=== PATIENT | female | born 1975 | race American Indian/Alaskan Native ===

== ENCOUNTER 2017-10-16 10:09 | Outpatient (CLI) | payer MEDICAID ==
--- NOTE | 2017-10-16 11:41 | XRay Report ---
Right wrist: Pain. There is a soft tissue mass anterior and lateral to the distal radius. No calcification. No underlying bone abnormality. The remainder the wrist is unremarkable. Impression: Nonspecific soft tissue mass.
== END 2017-10-16 10:10 | disposition home or self-care (01) ==
LOC: SPVIMAG 10:09
PROVIDERS: ATTEND Orthopaedic Surgery Sports Medicine
DX: M25.531 Pain in right wrist (principal); M79.89 Other specified soft tissue disorders

== ENCOUNTER 2017-11-06 07:46 | Outpatient (CLI) | payer MEDICAID ==
--- NOTE | 2017-11-06 08:05 | XRay Report ---
RIGHT SHOULDER RADIOGRAPHS INDICATION: Right shoulder pain. COMPARISON: None similar. FINDINGS: Frontal and Y views of the right shoulder, 3 projections demonstrate normal humeral head contour, well positioned against the glenoid. Normal acromioclavicular joint. Preserved scapular contour. Normal visualized soft tissues, right ribs and lung. CONCLUSION: No acute right shoulder radiographic abnormality, as described. Thank you for the opportunity to participate in this patient's care.
== END 2017-11-06 07:47 | disposition home or self-care (01) ==
LOC: SPVIMAG 07:46
PROVIDERS: ATTEND Orthopaedic Surgery Sports Medicine
DX: M25.511 Pain in right shoulder (principal)

== ENCOUNTER 2019-09-27 13:15 | Outpatient (CLI) | payer MEDICAID ==
--- NOTE | 2019-09-27 14:18 | Ultrasound Report ---
TRANSABDOMINAL PELVIC AND TRANSVAGINAL ULTRASOUND HISTORY: OVARIAN MASS LEFT,IRREGULAR MEN COMPARISON: None. TECHNIQUE: Routine transabdominal and transvaginal pelvic ultrasound performed. FINDINGS: TRANSABDOMINAL PELVIC ULTRASOUND: Uterus: Normal size and echogenicity without uterine mass. Endometrium: Normal in thickness. Right Ovary: Normal. Measures 3.6 x 1.8 x 1.6 cm. Left Ovary: Normal with several small follicles. Measures 3.6 x 2.6 x 2.7 cm. Additional findings: Transvaginal exam was performed for better delineation of the endometrium and ov bea. TRANSVAGINAL PELVIC ULTRASOUND: Uterus: Normal size. A heterogeneous diffuse echo pattern with no distinct fibroid or mass identified . Uterus measures 10.1 x 3.6 x 6.2 cm. Endometrium: Normal thickness measuring 4.4 mm. Right Ovary: Normal size, blood flow and appearance measuring 3.6 x 1.8 x 1.6 cm. Left Ovary: Normal size, blood flow and appearance measuring 3.6 x 2.6 x 2.7 cm. 2 dominant follicle s measure 1.5 cm. Additional findings: No adnexal mass or free fluid. IMPRESSION: 1. No significant abnormality. Signer Name: Jose E Emerson MD Signed: 09/27/2019 2:13 PM Workstation Name: [id number]
--- NOTE | 2019-09-27 16:24 | Mammography Report ---
DIGITAL SCREENING MAMMOGRAM WITH CAD, 09/27/2019 INDICATION: Routine screening mammography. TECHNIQUE: Digital bilateral 2D mammography was obtained in the craniocaudal and mediolateral obliq ue projections without and with implant displacement. This examination was interpreted with the benef it of Computer-Aided Detection analysis. COMPARISON: None. FINDINGS: Breast Density: The breasts are heterogeneously dense, which may obscure small masses. There is no evidence of dominant mass, suspicious calcifications or architectural distortion in eithe r breast. Bilateral subpectoral implants in place. IMPRESSION: No mammographic evidence of malignancy. Follow up recommendation: Routine yearly BI-RADS Category 2: Benign. A "normal" or negative report should not discourage follow up or biopsy of a clinically significant f inding. A written summary of these findings will be mailed to the patient. The patient will be entered into a mammography reporting system which will generate a reminder letter for the patient's next appointmen t at the appropriate interval. [employer] recommends yearly mammograms starting at age 40 and continuing as l anand as a woman is in good health. Breast MRI is recommended for women with an approximate 20-25% or greater lifetime risk of breast cancer, including women with a strong family history of breast or ova tai cancer or who have been treated for Hodgkin's disease. Signer Name: Jose E Emerson MD Signed: 09/27/2019 4:20 PM Workstation Name: [id number]
== END 2019-09-27 13:16 | disposition home or self-care (01) ==
LOC: SPVWC 13:15
PROVIDERS: ATTEND Family Medicine
DX: Z12.39 Encounter for other screening for malignant neoplasm of breast (principal); N92.6 Irregular menstruation, unspecified; N83.8 Other noninflammatory disorders of ovary, fallopian tube and broad ligament
CPT/HCPCS: 76830; 76856; 77067